=== PATIENT | male | born 2000 | race Caucasian/White ===

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

== ENCOUNTER 2019-03-08 16:23 | Emergency (ER) | payer MEDICAID, OTHER ==
[2019-03-08 16:58] VITALS: BP 158/90; PULSE 70
--- NOTE | 2019-03-08 17:30 | EDM.PDOC ---
ED HPI GENERAL MEDICAL PROBLEM - General Chief Complaint: ENT Problem Stated Complaint: (L) EAR CLOGGED Time Seen by Provider: 03/08/19 16:56 Source of Information: Reports: Patient History Limitations: Reports: No Limitations - History of Present Illness INITIAL COMMENTS - FREE TEXT/NARRATIVE: 18 bilateral plugged ears. this happens frequently and requires ear wash for wax removal. He does clean ears with cotton swabs - Related Data Allergies Allergy/AdvReac Type Severity Reaction Status Date / Time No Known Allergies Allergy Verified 03/08/19 17:22 Home Meds: Home Meds Sertraline HCl [Zoloft] 100 mg PO DAILY 03/30/17 [History] Past Medical History HEENT History: Reports: Impaired Vision Psychiatric History: Reports: Depression - Infectious Disease History Infectious Disease History: Reports: Influenza - Past Surgical History HEENT Surgical History: Reports: Naso-Sinus Surgery, Other (See Below) Other HEENT Surgeries/Procedures: brain surgery for infection 4years ago Neurological Surgical History: Reports: Other (See Below) Other Neurological Surgeries/Procedures: sinus infection that went into his brain, brain surgery, 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 Social & Family History - Family History Family Medical History: Noncontributory - Tobacco Use Smoking Status *Q: Current Every Day Smoker Years of Tobacco use: 1 Packs/Tins Daily: 0.4 - Caffeine Use Caffeine Use: Reports: Coffee, Energy Drinks, Soda - Living Situation & Occupation Living situation: Reports: Single, with Family (Those with his parents, works part-time at [employer]) ED ROS ENT - Review of Systems Review Of Systems: See Below Constitutional: Denies: Fever, Chills, Fatigue HEENT: Reports: Hearing Loss. Denies: Sinus Problem Respiratory: Denies: Shortness of Breath, Wheezing Cardiovascular: Denies: Chest Pain GI/Abdominal: Denies: Abdominal Pain ED EXAM, ENT - Physical Exam Exam: See Below Exam Limited By: No Limitations General Appearance: Alert, WD/WN, No Apparent Distress Ears: Normal External Exam, Hearing Grossly Normal, Normal TMs, Other (mild erythema to the external canels following nurse ear wash. cerumen cleared bilaterally) Course - Vital Signs Last Recorded V/S: Last Vital Signs Temp 36.8 C 03/08/19 17:25 Pulse 70 03/08/19 17:25 Resp 16 03/08/19 17:25 BP 158/90 H 03/08/19 17:25 Pulse Ox 99 03/08/19 17:25 Departure - Departure Time of Disposition: 17:29 Disposition: Home, Self-Care 01 Condition: Good Clinical Impression: Impacted cerumen of both ears - Discharge Information *PRESCRIPTION DRUG MONITORING PROGRAM REVIEWED*: Not Applicable *COPY OF PRESCRIPTION DRUG MONITORING REPORT IN PATIENT JES: Not Applicable Instructions: Earwax Buildup, Adult Referrals: PCP,None [Primary Care Provider] - Forms: ED Department Discharge Additional Instructions: if you develop pain in ears then follow-up with primary care provider
== END 2019-03-08 17:41 | disposition home or self-care (01) ==
LOC: JP.ED 16:23
DX: H61.23 Impacted cerumen, bilateral (principal); F17.210 Nicotine dependence, cigarettes, uncomplicated; F32.9 Major depressive disorder, single episode, unspecified; Z79.899 Other long term (current) drug therapy
CPT/HCPCS: 27500; 99281; 99282

== ENCOUNTER 2023-07-07 17:08 | Emergency (ER) | payer MEDICAID ==
[2023-07-07 18:13] VITALS: BP 149/103; PULSE 103
== END 2023-07-07 19:21 | disposition home or self-care (01) ==
LOC: JP.ED 17:08
DX: M27.2 Inflammatory conditions of jaws (principal)
CPT/HCPCS: 99282; 99283